=== PATIENT | male | born 1980 ===

== ENCOUNTER 2024-11-27 01:11 | Emergency (ER) | payer SELFPAY ==
[~2024-11-27] VITALS: Ht 167.6 cm; Wt 113.4 kg
[2024-11-27 01:20] VITALS: PULSE 82; RESP 18; TEMP 98.6; O2SAT 99
== END 2024-11-27 01:25 | disposition home or self-care (01) ==
LOC: ER 01:23
DX: I80.01 Phlebitis and thrombophlebitis of superficial vessels of right lower extremity (principal)
CPT/HCPCS: 99282